=== PATIENT | female | born 1970 | race Caucasian/White ===

== ENCOUNTER 2016-08-03 05:02 | Inpatient (IN) | payer OTHER ==
[2016-07-04 08:10] VITALS: BMI 35.0
--- NOTE | 2016-07-04 08:34 | PAT Medication Instructions ---
Service Date Jul 04, 2016. Current Home Medication List Biotin (Biotin), Unknown Dose QAM Etonogestrel/Ethinyl Estradiol (Nuvaring), 1 EA VAGRING MONTHLY Multiple Vitamin (Multi-Day Vitamins), 1 TAB PO DAILY Naproxen (Aleve), 2 TAB PO QD PRN for Pain Medication Instructions For Your Scheduled Surgery Etonogestrel/Ethinyl Estradiol (Nuvaring), 1 EA VAGRING MONTHLY (continue as directed) - Check with surgeon for instructions: Naproxen (Aleve), 2 TAB PO QD PRN for Pain - Hold the following medications the morning of surgery: Multiple Vitamin (Multi-Day Vitamins), 1 TAB PO DAILY Biotin (Biotin), Unknown Dose QAM If you have any questions please call us at [phone] (Irlanda Fraser PA-C ) or [phone] or [phone]
[2016-07-04 08:56] LABS: BASO % 0.3 %; BASO ABS # 0.02 K/uL (0-0.2); COMPLETE YES; HEMATOCRIT 39.8 % (37-47); IG% 0.2 %; LYMPH % 38.5 %; LYMPH ABS # 2.27 K/uL (1.2-3.4); MEAN CELL VOLUME 84.5 fL (80-100); MEAN CORPUSCULAR HEMOGLOBIN 29.3 pg (25-34); MEAN CORPUSCULAR HGB CONC 34.7 g/dl (32-36); MEAN PLATELET VOLUME 8.8 fL (7.4-10.4); MONO % 6.8 %; NEUT % 52.2 %; PLATELET COUNT 248 K/uL (130-400); RED BLOOD COUNT 4.71 M/uL (4.2-5.4); WHITE BLOOD COUNT 5.89 K/uL (4.8-10.8)
--- NOTE | 2016-07-04 08:58 | DIAGNOSTIC IMAGING REPORT ---
CHEST PREADMISSION(PA/LAT) CLINICAL HISTORY: Preoperative chest COMPARISON STUDY: 02/17/2011 FINDINGS: The cardiac and mediastinal contours are normal. There is no evidence of focal pulmonary consolidation. There is no evidence of failure. No pleural effusions are visualized.[ IMPRESSION: No active disease in the chest. Electronically signed by: Olman Craig M.D. 07/04/2016 8:56 AM Dictated Date/Time: 07/04/2016 8:56 AM
[2016-07-04 09:07] LABS: INR 0.9 (0.9-1.1); PROTHROMBIN TIME (PATIENT) 9.5 SECONDS (9.0-12.0)
[2016-07-04 09:15] LABS: BUN/CREATININE RATIO 18.7 (10-20); CALCIUM 9.2 mg/dl (8.5-10.1); CREATININE 0.78 mg/dl (0.60-1.20); POTASSIUM 3.9 mmol/L (3.5-5.1)
--- NOTE | 2016-07-29 01:08 | HISTORY & PHYSICAL EXAMINATION ---
DATE OF ADMISSION: 08/03/2016 CHIEF COMPLAINT: Right hip and groin pain. HISTORY OF PRESENT ILLNESS: A 46-year-old white female, who works for [employer] who presents for treatment of the right hip. She has about 2-3 years of increasing right hip pain and discomfort. She describes it has gotten worse over time. She takes some Aleve, but it really does not help much anymore. She has more and more trouble getting around. She has got worn out by the pain. She has got limited walking tolerance. She limps more as the day goes on. She would like to have her hip replaced. PAST MEDICAL HISTORY: Noncontributory. PREVIOUS SURGERIES: None. ALLERGIES: No known drug allergies. CURRENT MEDICATIONS: 1. NuvaRing. 2. Aleve. SOCIAL HISTORY: A 46-year-old female, lives in [place]. She is single. Works for [employer]. FAMILY HISTORY: Significant for diabetes. REVIEW OF SYSTEMS: Negative for diabetes, neurologic problems, vascular problems or bleeding disorders. Denies any chest pain or shortness of breath. She is obese with a BMI of 35.6. PHYSICAL EXAMINATION: GENERAL: Reveals a healthy, pleasant middle-aged female, who looks in pretty good health. HEENT: Benign. NECK: Supple. No lymphadenopathy. LUNGS: Clear to auscultation. HEART: Regular rate and rhythm. ABDOMEN: Soft, nontender and nondistended. EXTREMITIES: Grossly neurovascularly intact except as follows: Examination of right hip and leg reveals the patient walks with an antalgic gait. Leg lengths clinically appear pretty equal. She does have limited hip motion with pain with internal rotation. She can internally rotate to neutral, external rotation of 20 degrees. Slight flexion contracture. Neurologically intact. Negative straight leg raise. X-RAYS: X-rays of the right hip were reviewed. It shows advanced right hip DJD. She has complete loss of superior joint space. She has cystic changes in the femoral head and acetabulum. Fairly poor acetabular coverage. Pretty significant with medial osteophyte. ASSESSMENT: A 46-year-old female with 2-3 years history of increasing right hip pain and discomfort, unresponsive to conservative care. She would like to have her right hip replaced. PLAN: We are going to take her to the operating room and do a right total hip replacement. The risks and benefits of this procedure were explained to the patient including but not limited to DVT, PE, , infection, neurological injury, vascular injury, bleeding problems, pain, limited range of motion, stiffness, need for revision surgery, dislocation, leg length inequality, nerve palsy, etc. The patient understands and desires to proceed. Informed consent was obtained. The patient is single. Her parents are going to help her out postoperatively. She is planning to be discharged to home with some home health. She has held her Aleve 10 days preop. I will see her back 2 weeks postop. CARISSA
[~2016-08-03] VITALS: Ht 165.1 cm; Wt 97.0 kg
[2016-08-03] VITALS (10 sets, daily range): BP systolic 91–147; BP diastolic 61–98; PULSE 64–97; TEMP 36.5–37.6; O2SAT 95–100; Ht 165.1 cm; Wt 97.0 kg
[~2016-08-03 05:02] MED LIST: BIOT300T2; ETONMIS VAGRING; MULT-225 PO; NAPR1TAB9 PO
[2016-08-03] MEDS ORDERED: LACTATED RINGER'S 1000ML 1,000 ML IV SCH (06:00)
[2016-08-03] MEDS ORDERED: FAMOTIDINE 20 MG TAB PO SCH (06:00)
[2016-08-03] MEDS ORDERED: LACTATED RINGER'S 1000ML IV SCH (06:00)
[2016-08-03] MEDS ORDERED: SCOPOLAMINE 1.5 MG TDSY TD SCH (06:00)
[2016-08-03] MEDS ORDERED: METOCLOPRAMIDE HCL 10 MG TAB PO SCH (06:00)
[2016-08-03] MEDS ORDERED: TRANEXAMIC ACID INJ 1,000 MG in SODIUM CHLORIDE 0.9% 100ML 100 ML IV SCH ×4 (06:00)
[2016-08-03] MEDS ORDERED: ACETAMINOPHEN 500 MG TAB PO SCH (06:00)
[2016-08-03] MEDS ORDERED: GABAPENTIN 300 MG CAP PO SCH (06:00)
[2016-08-03] MEDS ORDERED: CEFAZOLIN 2000 MG/60 ML D5W 60 ML IV SCH (06:00)
[2016-08-03] MEDS ORDERED: BUPIVACAINE 0.5 % 5 MG/1 ML PF 10ML VIAL ONE (06:25)
[2016-08-03] MEDS ORDERED: MIDAZOLAM HCL 1 MG/ML 2ML VIAL ONE ×3 (06:33→08:19)
[2016-08-03] MEDS ORDERED: FENTANYL CITRATE INJ 50 MCG/1 ML 2 ML VIAL ONE (06:33)
[2016-08-03] MEDS ORDERED: PROPOFOL IV EMULSION 10 MG/ML 20 ML VIAL IV ONE (06:33)
[2016-08-03] MEDS ORDERED: LIDOCAINE HCL 2% 2 ML VIAL (20MG/ML) ONE (06:33)
[2016-08-03] MEDS ORDERED: BUPIVACAINE/EPINEPHRINE 0.5% MPF 1:200,000 30 ML VIAL ONE (06:36)
[2016-08-03] MEDS ORDERED: BACITRACIN 50000 UNIT VIAL ONE (06:36)
--- NOTE | 2016-08-03 06:47 | History & Physical Bridge Note ---
H&P Re-Evaluation Bridge Note: I have examined the patient, reviewed the History & Physical and in the interval since the performance of the History & Physical I have noted the following changes of clinical significance: No changes noted
[2016-08-03] MEDS ORDERED: RANITIDINE HCL 25 MG/ML INJ ONE ×2 (07:17→07:24)
[2016-08-03] MEDS ORDERED: ONDANSETRON INJ 2 MG/ML 2 ML VIAL ONE (07:17)
[2016-08-03] MEDS ORDERED: PHENYLEPHRINE 100MCG/ML 5ML SYR ONE (07:27)
--- NOTE | 2016-08-03 08:53 | [facility] Post Operative Brief Note ---
Immediate Operative Summary Operative Date Aug 03, 2016. Pre-Operative Diagnosis Right Hip Advanced Degenerative Joint Disease Post-Operative Diagnosis Same as pre-operative Procedure(s) Performed Right Total Hip Arthroplasty--Uncemented Surgeon Dr. Jorge Hines [employer] Surgeon(s) Josué Silverio PA-C Estimated Blood Loss 500ml Findings Right Hip DJD Fluids (cc crystalloids) 1700 cc Specimens SPECIMEN: A: Right femoral head Drains None Anesthesia Spinal Complication(s) None Disposition Recovery Room / PACU
[2016-08-03] MEDS ORDERED: SILVER SULFADIAZINE 1% CR 50 GM JAR EXT PRN (09:00)
[2016-08-03] MEDS ORDERED: OXYCODONE HCL IR 5 MG TAB (IMMEDIATE RELEASE) PO PRN (09:00)
[2016-08-03] MEDS ORDERED: MULTIVITAMIN TAB PO SCH (09:00)
[2016-08-03] MEDS ORDERED: MAGNESIUM HYDROXIDE SUSP 30 ML UDC PO PRN (09:00)
[2016-08-03] MEDS ORDERED: ZOLPIDEM TARTRATE 5 MG TAB PO PRN (09:00)
[2016-08-03] MEDS ORDERED: DiphenhydrAMINE HCL 50 MG/ML VIAL IV PRN (09:00)
[2016-08-03] MEDS ORDERED: ALUMINUM/MAGNESIUM/SIMETH (MAALOX MAX) 30 ML UDC PO PRN (09:00)
[2016-08-03] MEDS ORDERED: BISACODYL 10 MG SUPP PR PRN (09:00)
[2016-08-03] MEDS ORDERED: MoRPHine SULFATE 2 MG/ML CARP IV PRN (09:00)
[2016-08-03] MEDS ORDERED: ONDANSETRON INJ 2 MG/ML 2 ML VIAL IV PRN ×2 (09:00→10:00)
[2016-08-03] MEDS ORDERED: METOCLOPRAMIDE HCL INJ 5 MG/ML 2 ML VIAL IV PRN (09:00)
--- NOTE | 2016-08-03 09:21 | OPERATIVE REPORT ---
DATE OF OPERATION: 08/03/2016 SURGEON: Dr. Jorge Hines. DRY CHAIN OFFBEARER: LEV Zazueta PREOPERATIVE DIAGNOSIS: Right hip degenerative joint disease. POSTOPERATIVE DIAGNOSIS: Same. PROCEDURE PERFORMED: Right uncemented ceramic on highly cross-linked polyethylene total hip arthroplasty. COMPLICATIONS: None. ESTIMATED BLOOD LOSS: 500 mL. FLUID REPLACEMENT: 1700 mL crystalloid fluid replacement. ANESTHESIA: Spinal. DRAINS: None. SPECIMENS: Right femoral head sent for pathology. OPERATIVE INDICATIONS: The patient is a 46-year-old fairly active female who has had about a 2- 3-year history of markedly increased right hip pain that has gotten significantly worse over the past year. She has been pretty debilitated by this and having difficulty doing her job. X-rays revealed advanced right hip DJD. She elected to proceed with total hip arthroplasty. OPERATIVE FINDINGS: Operative findings revealed advanced right hip DJD. She had grade 4 [id number] disease of the femoral head and acetabulum. She did have quite a bit of bleeding from the intramedullary canal. She had osteophytes around the femoral head. OPERATIVE IMPLANTS: Operative implants consisted of: 1. A Biomet G7 size 52 mm acetabular shell. 2. A 6.5 cancellous acetabular screws, 1 at 35 mm length and 1 at 20 mm in length. 3. An apex hole eliminator. 4. Highly cross-linked polyethylene liner with 52 mm outer diameter, 32 mm inner diameter with a flor placed inferior and posterior. 5. A DePuy size 10.5 small stature AML femoral stem. 6. A +5/32 mm ceramic articular ball. OPERATIVE PROCEDURE: The patient taken to the operating room, identified and placed on the operating table in supine position. All contact areas were appropriately padded. IV antibiotics were provided by anesthesia team. A spinal anesthetic had been implemented in the holding area. Raymond catheter was placed in sterile fashion. The patient was then placed in the left lateral decubitus position. An axillary roll was placed. Stlberg hip positioner was used for positioning. Right hip and leg were then prepped and draped in the usual sterile fashion. A posterolateral approach to the right hip was then performed through a curvilinear incision centered over the greater trochanter. Sharp dissection was carried out through the subcutaneous tissue down to the level of the IT band and gluteal fascia. The IT band and gluteal fascia were then incised longitudinally in line with skin incision. Of note, she had a fairly thick soft tissue envelope. The greater trochanteric bursa was excised. The piriformis and external rotators were then tagged and taken off the posterior aspect of the femur. Posterior capsulotomy was then performed leaving a large flap for later repair. Hip was internally rotated and dislocated. Femoral neck osteotomy cut was made with the final cut 15 mm above the lesser trochanter. Femoral head was removed and sent for pathology. The femur was retracted anteriorly. Attention was then drawn to the acetabulum. The acetabulum labrum was excised. The pulvinar fat was excised. Sequential reaming of the acetabulum was then performed beginning with a size 45 and progressing up to 51. A 52 mm Biomet G7 acetabular shell was then placed in about 40 degrees of lateral opening and 20 degrees of anteversion. I did have to ream the entrance to the acetabulum with a 52 in order to get the cup in. The cup was fixed with two 6.5 cancellous acetabular screws. A trial liner was placed. Attention was then drawn to the femur. The proximal femur was entered with cookie cutter followed by canal finder and lateralizing reamer. Sequential reaming of the femur was then performed beginning with a size 8 and progressing up to 10. We got excellent chatter at a 10. I then broached beginning with a 10.5 broach. We had to place it down several times. We eventually got just about the calcar cut. We then trialed the hip and the +5/32 mm articular ball provided full stability and full extension and external rotation and flexion to 90 degrees, internal rotation to 50 degrees. I did elect to place a flor inferior and posterior to maximize the stability in flexion. Attention then drawn toward placement of permanent components. All trial components were removed. The wound was irrigated with copious amounts of pulsatile lavage solution. An apex hole eliminator was placed. A highly cross-linked polyethylene liner with a flor placed inferior and posterior was then placed. A 10.5 small stature AML femoral stem was impacted in position. Excellent scratch fit. A +5/32 mm ceramic articular ball was placed. The hip was located and once again found to be stable. Attention was then drawn toward closing. The wound was irrigated with copious amounts of pulsatile lavage solution. I did inject locally with 60 mL of 0.5% Marcaine with epinephrine. The posterior capsule and external rotators were reattached through drill holes in the posterior trochanter with #2 Ti-Cron suture. The IT band and gluteal fascia were then closed with #1 PDS suture in running fashion. The subcutaneous tissues were then closed with 2 layers, the deep layer #2 Vicryl suture and then the subcutaneous tissues with 2-0 Dexon suture in a buried interrupted fashion. The skin was closed with skin gerald. Leg was then cleaned and dried and a sterile dressing of Xeroform, 4 x 4's, ABD pad and foam tape was applied. The patient then transferred to the recovery room in stable condition. The patient tolerated the procedure well with no complications. All needle and sponge counts were correct at the end of the operation. I attest to the content of the Intraoperative Record and any orders documented therein. Any exceptio ns are noted below.
--- NOTE | 2016-08-03 09:27 | DIAGNOSTIC IMAGING REPORT ---
AP PELVIS AND RIGHT HIP 3 VIEWS CLINICAL HISTORY: Degenerative arthritis COMPARISON STUDY: No previous studies for comparison. FINDINGS: There are postsurgical changes of a total right hip arthroplasty. No acute fractures or dislocations are visualized. Overlying skin gerald are evident. There is air in soft tissues consistent with recent surgery. IMPRESSION: Postsurgical changes of a total right hip arthroplasty Electronically signed by: Olman Craig M.D. 08/03/2016 9:25 AM Dictated Date/Time: 08/03/2016 9:24 AM
--- NOTE | 2016-08-03 09:48 | Anesthesiology Progress Note ---
Anesthesia Post Op Note Date & Time Aug 03, 2016 at 09:48 Vital Signs Pain Intensity: 0 Vital Signs Past 12 Hours Date Time Temp Pulse Resp B/P Pulse Ox O2 Delivery O2 Flow Rate FiO2 08/03/16 09:34 36.3 66 16 87/63 100 Nasal Cannula 2 08/03/16 09:27 68 14 08/03/16 09:27 69 14 100 08/03/16 09:26 85/54 08/03/16 09:22 66 16 08/03/16 09:22 65 16 100 08/03/16 09:21 84/64 08/03/16 09:17 81 18 08/03/16 09:17 88 18 100 08/03/16 09:16 90/54 08/03/16 09:15 98/53 08/03/16 09:12 83 16 08/03/16 09:12 86 16 100 08/03/16 09:10 98/53 08/03/16 09:09 89/59 08/03/16 09:07 70 17 100 08/03/16 09:07 69 17 08/03/16 09:06 85/50 08/03/16 09:06 85/50 08/03/16 09:03 86 16 97 08/03/16 09:03 86 16 08/03/16 09:03 86 16 97 08/03/16 09:03 86 16 08/03/16 09:00 97/56 08/03/16 09:00 97/56 08/03/16 08:58 90 17 08/03/16 08:58 89 17 99 08/03/16 08:58 90 17 08/03/16 08:58 89 17 99 08/03/16 08:57 113/97 08/03/16 08:57 113/97 08/03/16 08:53 89 19 08/03/16 08:53 88 19 101/66 99 08/03/16 08:53 88 19 101/66 99 08/03/16 08:53 89 19 08/03/16 08:53 36.2 82 16 101/66 99 Room Air 08/03/16 05:43 36.6 82 18 105/65 96 Room Air Notes Mental Status: alert / awake / arousable, participated in evaluation Pt Amnestic to Procedure: Yes Nausea / Vomiting: adequately controlled Pain: adequately controlled Airway Patency, RR, SpO2: stable & adequate BP & HR: stable & adequate Hydration State: stable & adequate Anesthetic Complications: no major complications apparent
[2016-08-03] MEDS ORDERED: PHENYLEPHRINE 100MCG/ML 5ML SYR IV PRN (10:00)
[2016-08-03] MEDS ORDERED: ATROPINE SULFATE 0.1 MG/ML 5ML SYR IV PRN (10:00)
[2016-08-03] MEDS ORDERED: HYDROmorphone INJ 2 MG/ML SYR/VIAL IV PRN (10:00)
[2016-08-03] MEDS ORDERED: EpHEDrine SULFATE INJ 50 MG/ML AMP IV PRN (10:00)
[2016-08-03] MEDS: KETOROLAC TROMETHAMINE 30 MG/ML VIAL IV. SCH ×2 (11:55→18:06)
[2016-08-03] MEDS: D5W AND 1/2NSS + 20MEQ KCL 1,000 ML IV SCH ×2 (11:56→19:16)
[2016-08-03] MEDS: PANTOprazole SOD 40 MG TAB PO SCH (12:02)
[2016-08-03] MEDS: MULTIVITAMIN TAB PO SCH (12:02)
[2016-08-03] MEDS: FERROUS GLUCONATE 324 MG TAB PO SCH ×2 (12:23→18:05)
[2016-08-03] MEDS: ACETAMINOPHEN 500 MG TAB PO SCH ×2 (13:51→21:55)
[2016-08-03] MEDS: CEFAZOLIN IV 2,000 MG in DEXTROSE 5% 50ML 50 ML IV SCH ×2 (13:51→22:01)
[2016-08-03] MEDS ORDERED: TRANEXAMIC ACID INJ 1,000 MG in SODIUM CHLORIDE 0.9% 100ML 100 ML IV ONE (15:00)
[2016-08-03] MEDS: CHECK SCOPOLAMINE PATCH PLACEMENT SCH (16:00)
--- NOTE | 2016-08-03 17:48 | PROGRESS NOTE ---
DATE: 08/03/2016 SUBJECTIVE: A 46-year-old white female postop from a right total hip replacement. She is doing well. Pain is controlled. Denies any chest pain. Not feeling dizzy or lightheaded. OBJECTIVE: VITAL SIGNS: Temperature 37.2. Vital signs stable. GENERAL: Reveals a healthy, pleasant middle-aged female. She is sitting up in bed and looks comfortable. LUNGS: Clear to auscultation. HEART: Has a regular rate and rhythm. ABDOMEN: Soft, nontender, nondistended. EXTREMITIES: Grossly neurovascularly intact except as follows: Examination of the right hip and leg reveals the leg lengths to be equal. Dressing is clean, dry and intact. Thigh is soft and supple. She is neurologically intact. Hip is located. X-RAYS: X-rays of the right hip from recovery room were reviewed. It shows a right uncemented total hip arthroplasty. Components looked to be in good position. No signs of problems. ASSESSMENT: A 46-year-old white female postop from a right total hip replacement, doing well. Pain is controlled. She is neurologically intact. Hip is located. PLAN: 1. DVT prophylaxis including thigh-high TEDs, SCDs, and aspirin twice a day. 2. PT/OT. Weightbearing as tolerated. Right total hip protocol. 3. IV antibiotics x24 hours. 4. Pain control, doing well with current pain regimen. 5. Disposition: She is planning to be discharged to her parent's home with likely some home health assistance, once medically stable. CARISSA
[2016-08-03] MEDS: ASPIRIN 325 MG ECTAB PO SCH (21:55)
[2016-08-03] MEDS: DOCUSATE SODIUM 100 MG CAP PO SCH (21:55)
[2016-08-03] MEDS: TAPENTADOL ER 50 MG TABCR PO SCH (22:00)
[2016-08-04] VITALS (7 sets, daily range): BP systolic 98–113; BP diastolic 63–71; PULSE 78–98; TEMP 36.8–37.3; O2SAT 95–97
[2016-08-04] MEDS: KETOROLAC TROMETHAMINE 30 MG/ML VIAL IV. SCH ×4 (00:05→18:09)
[2016-08-04] MEDS: CHECK SCOPOLAMINE PATCH PLACEMENT SCH ×3 (00:06→15:23)
[2016-08-04] MEDS: D5W AND 1/2NSS + 20MEQ KCL 1,000 ML IV SCH ×2 (03:03→10:15)
[2016-08-04] MEDS: ACETAMINOPHEN 500 MG TAB PO SCH ×3 (05:44→21:40)
[2016-08-04 05:59] LABS: BASO % 0.1 %; BASO ABS # 0.01 K/uL (0-0.2); COMPLETE YES; EOS % 0.5 %; HEMATOCRIT 28.5 % (37-47); IG% 0.2 %; LYMPH % 23.8 %; LYMPH ABS # 2.51 K/uL (1.2-3.4); MEAN CELL VOLUME 85.1 fL (80-100); MEAN CORPUSCULAR HEMOGLOBIN 29.3 pg (25-34); MEAN CORPUSCULAR HGB CONC 34.4 g/dl (32-36); MEAN PLATELET VOLUME 8.8 fL (7.4-10.4); MONO % 9.2 %; NEUT % 66.2 %; PLATELET COUNT 193 K/uL (130-400); RED BLOOD COUNT 3.35 M/uL (4.2-5.4); WHITE BLOOD COUNT 10.55 K/uL (4.8-10.8)
[2016-08-04 06:40] LABS: BUN/CREATININE RATIO 12.1 (10-20); CALCIUM 7.9 mg/dl (8.5-10.1); CREATININE 0.67 mg/dl (0.60-1.20)
--- NOTE | 2016-08-04 08:57 | PROGRESS NOTE ---
DATE: 08/04/2016 DATE: 08/04/2016. SUBJECTIVE: A 46-year-old white female postop day 1 from right total hip replacement. She is doing pretty well. Pain is very well controlled. Denies any chest pain or shortness of breath. Not feeling dizzy or lightheaded. OBJECTIVE: VITAL SIGNS: Temperature 36.8. Vital signs stable. PHYSICAL EXAMINATION: GENERAL: Reveals a healthy, pleasant middle-aged female. She is sitting up in her bedside chair and looking pretty comfortable. She is eating breakfast. LUNGS: Clear to auscultation. HEART: Regular rate and rhythm. ABDOMEN: Soft, nontender, nondistended. EXTREMITY EXAMINATION: Grossly neurovascularly intact except as follows: Examination of the right lower extremity reveals the dressing to be clean, dry and intact. Thigh is soft and supple. Hip is located. She is neurologically intact. LABORATORY DATA: Hemoglobin 9.8. Hematocrit 28.5. Electrolytes are stable. ASSESSMENT: A 46-year-old white female postop day 1 from right total hip replacement, doing pretty well. Pain is controlled. PLAN: 1. DVT prophylaxis including thigh-high TEDs, SCDs, and aspirin twice a day. 2. PT/OT. Weightbearing as tolerated. Right total hip protocol. 3. Pain control. Doing pretty well with current pain regimen. 4. Anemia. She is anemic, but asymptomatic. Otherwise healthy and she should tolerate this well. We will continue iron supplementation. 5. Disposition: Plan to discharge to home with some home health once adequately recovered. She is going to go to her parents' house immediately postop.
[2016-08-04] MEDS: ASPIRIN 325 MG ECTAB PO SCH ×2 (09:07→21:37)
[2016-08-04] MEDS: TAPENTADOL ER 50 MG TABCR PO SCH ×2 (09:07→21:37)
[2016-08-04] MEDS: FERROUS GLUCONATE 324 MG TAB PO SCH ×3 (09:07→18:06)
[2016-08-04] MEDS: MULTIVITAMIN TAB PO SCH ×2 (09:07→12:09)
[2016-08-04] MEDS: DOCUSATE SODIUM 100 MG CAP PO SCH ×2 (09:07→21:37)
[2016-08-04] MEDS: PANTOprazole SOD 40 MG TAB PO SCH (09:08)
[2016-08-04] MEDS ORDERED: ASPEC325 PO (19:55)
[2016-08-04] MEDS ORDERED: OXYC-57 PO (19:55)
--- NOTE | 2016-08-04 19:58 | Discharge Instructions ---
Discharge Instructions Date of Service Aug 04, 2016. Admission Reason for Admission: Right Hip Degenerative Joint Disease Discharge Discharge Diagnosis / Problem: Right Hip Replacement Discharge Goals Goal(s): Decrease discomfort, Improve function, Increase independence, Improve disease control, Therapeutic intervention Activity Recommendations Activity Limitations: per Instructions/Follow-up section (Total Hip Precautions ) Weightbearing Status: Right weightbearing . Instructions / Follow-Up Instructions / Follow-Up ACTIVITY RECOMMENDATIONS: Physical Therapy: * Aggressive physical therapy is not usually needed. You will learn to take care of yourself safely and walk. * Follow the "Hip Precautions Instructions." * In some cases, the home health care social worker at the hospital will arrange to have a therapist come to your house for the first couple of weeks to help you learn these skills. * You need to practice on your own or with the help of a family member as needed. * When you learn these skills, most of the therapy can be done on your own. Home Exercise: * You were shown a series of exercises in the hospital. Do these exercises three to four times each day including the exercises you were shown in physical therapy. Walking: * Get up and walk several times each day. For the first four weeks, try not to stand or walk for more than one hour at a time. If you do stand or walk for more than one hour, you will not hurt anything, but your leg will likely swell. * As you feel comfortable, you may change from the walker or crutches to a cane and then to independent walking. MEDICATIONS: New Medicine: * You will likely be taking one or more of these medicines: 1. Percocet - Take, as directed, when you need it, every four to six hours to control your pain. 2. Aspirin - Thins your blood to lessen the chance of forming a blood clot. * The most common side effects of pain medicine and iron are nausea and constipation. If nausea or constipation is too much of a problem or if you have any questions about your new medicines or doses, call [facility] at . We will try to help you manage these issues. VERY IMPORTANT TO READ AND REVIEW" Pain: * The immediate post-operative period after hip replacement surgery is often quite painful. * You are given a prescription for pain medicine. You should take it, as directed, when you need it, especially before physical therapy and before going to bed. Pain that interferes with sleep is very common and can last several months. * You will likely need pain medicine for the first two to four weeks. It will not stop all of the pain. The pain will lessen and as you feel better, you may change to milder pain medicine such as Tylenol. * The most common side effects of pain medicine are nausea and constipation, so don't take more than you need. SPECIAL CARE INSTRUCTIONS: TEDs/Elastic Stockings: * The white elastic stockings help limit swelling and prevent blood clots from forming in your legs. The more you wear them, the more they work. * Wear them for six weeks. Prevention of Infection: * Take antibiotics one hour before any dental cleaning, dental work, urological procedure, gastrointestinal procedure or any invasive surgery in order to prevent your new joint from getting infected. * You may get the antibiotics from the doctor performing the procedure or you may call our office at before and we will call in a prescription to the pharmacy of your choice. Things to Watch For: * Drainage from the incision site that occurs more than one week after your surgery. * Severely increased leg pain or swelling. * Increased redness at the incision site. * Fever above 102 degrees Fahrenheit. * Unusual chest pain or shortness of breath. * Unusual pain or burning with urination. Call [facility] at with any of the above problems or if you have any questions about your medicines or recovery. FOLLOW UP VISIT: Make an appointment to see your doctor for approximately two weeks after surgery for a progress check and staple removal by calling the office at . Current Hospital Diet Patient's current hospital diet: Regular Diet Discharge Diet Recommended Diet: Regular Diet Procedures Procedures Performed: Right Total Hip Arthroplasty--Uncemented Pending Studies Studies pending at discharge: no Medical Emergencies . Who to Call and When: Medical Emergencies: If at any time you feel your situation is an emergency, please call [phone] immediately. . Non-Emergent Contact Non-Emergency issues call your: Surgeon . "Provider Documentation" section prepared by Jorge Hines. VTE Core Measure Inpt VTE Proph given/why not?: Other Anticoagulation, T.E.D. Stockings, SCD's
[2016-08-05] MEDS: CHECK SCOPOLAMINE PATCH PLACEMENT SCH (00:18)
[2016-08-05] MEDS: KETOROLAC TROMETHAMINE 30 MG/ML VIAL IV. SCH ×2 (00:18→06:26)
[2016-08-05 06:01] VITALS: BP 113/73; PULSE 97; TEMP 37.1; O2SAT 95
[2016-08-05] MEDS: ACETAMINOPHEN 500 MG TAB PO SCH (06:27)
[2016-08-05 07:13] VITALS: BP 101/66; PULSE 101; O2SAT 94
[2016-08-05 08:02] VITALS: PULSE 101; TEMP 37.1; O2SAT 94
[2016-08-05] MEDS: MULTIVITAMIN TAB PO SCH (08:17)
[2016-08-05] MEDS: ASPIRIN 325 MG ECTAB PO SCH (08:18)
[2016-08-05] MEDS: DOCUSATE SODIUM 100 MG CAP PO SCH (08:18)
[2016-08-05] MEDS: PANTOprazole SOD 40 MG TAB PO SCH (08:18)
[2016-08-05] MEDS: FERROUS GLUCONATE 324 MG TAB PO SCH (08:18)
[2016-08-05] MEDS: TAPENTADOL ER 50 MG TABCR PO SCH (08:21)
[2016-08-05 09:02] VITALS: BP 105/67
--- NOTE | 2016-08-05 10:11 | PROGRESS NOTE ---
DATE: 08/05/2016 SUBJECTIVE: A 46-year-old female postop day #2 from right total hip replacement. She is doing well. Therapy went pretty well. Denies any chest pain or shortness of breath. Not feeling dizzy or lightheaded. OBJECTIVE: VITAL SIGNS: Temperature 37.1. Vital signs stable. GENERAL: Physical examination reveals a healthy, pleasant middle-aged female. She is sitting up in bed and looks comfortable. LUNGS: Clear to auscultation. HEART: Regular rate and rhythm. ABDOMEN: Soft, nontender, and nondistended. EXTREMITIES: Grossly neurovascularly intact except as follows: Examination of the right hip and the right leg reveals the dressing to be clean, dry and intact. Hip is located. She is neurologically intact. ASSESSMENT: A 46-year-old female postop day #2 from right total hip replacement, doing pretty well. Pain is controlled. PLAN: 1. DVT prophylaxis including thigh-high TEDs, SCDs, and aspirin twice a day. 2. PT/OT. Weightbearing as tolerated. Right total hip protocol. 3. Pain control, doing pretty well with current pain regimen. 4. Disposition: Plan to discharge to home with some home health once adequately recovered, likely later on today.
--- NOTE | 2016-08-10 09:08 | DISCHARGE SUMMARY ---
ADMITTING PHYSICIAN AND SURGEON: Dr. Hines. ADMITTING DIAGNOSIS: Right hip degenerative joint disease. SURGERY PERFORMED: Right total hip arthroplasty. SECONDARY DIAGNOSES: Noncontributory. CONSULTS: None obtained. HISTORY AND PHYSICAL EXAMINATION: Well documented in the patient's chart. HOSPITAL COURSE: The patient was admitted on 08/03/2016 and underwent total hip arthroplasty, tolerated the procedure well. There were no complications. She was transferred to the PACU postoperatively and later to the orthopedic floor for further care. She was given Ancef for antibiotic prophylaxis, SYLVESTER stockings, SCDs and aspirin for DVT prophylaxis. Her hemoglobin, hematocrit and vital signs were monitored during her hospital stay and remained stable. She developed some postoperative anemia with a hemoglobin down to 9.8. Did not require any blood transfusions. There were no complications. By postoperative day 2, she was tolerating a general diet, pain was controlled with oral pain medicine. She was participating in physical therapy and had no signs or symptoms of deep vein thrombosis. On postop day 2, she was discharged home in good condition, set up with home health services, given printed discharge instructions including aspirin 325 mg b.i.d. and Percocet. Continue her home medications, continue physical therapy, SYLVESTER stockings, weightbearing as tolerated, total hip precautions. Follow up in 10-12 days or sooner if there are any problems or concerns.
[2016-08-27] MEDS ORDERED: ETONOGESTREL VAGRING SCH (21:00)
[2016-08-27] MEDS ORDERED: ETHINYL ESTRADIOL VAGRING SCH (21:00)
== END 2016-08-05 10:05 | disposition home or self-care (01) | DRG 470 ==
LOC: ENRESERVDT → ENRESERVTM → C.ACU 05:02 → C.3E 10:22
PROVIDERS: ADMIT Orthopaedic Surgery Sports Medicine; ATTEND Orthopaedic Surgery Sports Medicine
PROC: 0SR904A Replacement of Right Hip Joint with Ceramic on Polyethylene Synthetic Substitute, Uncemented, Open Approach (ICD-10-PCS; principal; 2016-08-03 07:00)
DX: M16.11 Unilateral primary osteoarthritis, right hip (principal)

== ENCOUNTER 2018-12-11 05:59 | Inpatient (IN) ==
--- NOTE | 2018-12-01 08:53 | Anesthesiology Consultation ---
Date of Service December 01, 2018 Assessment & Plan (1) Encounter for pre-operative examination: - Check test AM DOS Chart Review Chart Review: Acceptable Risk for Surgery and Patient NOT seen in Pre Admission Testing History Surgery Operation Date: 12/11/18 07:00 Proposed Procedures p Laparoscopic Assisted Right Hemicolectomy - Seven Tierney DO Height/Weight Height: 5 ft 5 in Weight: 86.183 kg Allergies Allergy/AdvReac Type Severity Reaction Status Date / Time No Known Allergies Allergy Unknown Verified 11/28/18 15:31 Medications Home Medications Medication Instructions Recorded Confirmed Last Taken NuvaRing 1 vag ring VAGINAL UD 11/05/18 11/28/18 Unknown biotin 2,000 mcg PO QAM 11/05/18 11/28/18 11/17/18 multivitamin 2 tab PO QAM 11/05/18 11/28/18 11/17/18 Past Medical History Medical History Degenerative disc disease lumbar Obesity Past Surgical History Surgical History History of colonoscopy 11/19/18: MAC sedation at [facility] History of total right hip replacement History of wisdom tooth extraction Social History Smoking Status: Never smoker Do You Dip or Chew Tobacco: No Hx Alcohol Use: Yes Alcohol type: wine alcohol intake frequency: holidays/special occasions only Hx Substance Use: No substance use type: does not use Testing Laboratory Results 11/25/18 WBC 7.64 H/H 14.6/41.7 PLATELETS 271 SODIUM 137 POTASSIUM 3.5 CHLORIDE 104 CO2 25 BUN 10 CREATININE 0.78 GLUCOSE 73 PT 9.7 INR 0.9 Electrocardiogram Date: 11/25/18 NSR at 70bpm. LAD. Other Testing Chest CT: 11/25/18: The lungs are clear. No significant abnormality identified within the chest.
[2018-12-11] MEDS ORDERED: LR 15ML/HR IV SCH (06:00)
[2018-12-11] MEDS ORDERED: CEFAZOLIN 2000MG 2,000 MG/15 ML SYR IV SCH (06:00)
[2018-12-11] MEDS ORDERED: ATROPINE SULFATE 0.1 MG/ML 10ML SYR IV PRN (07:16)
[2018-12-11] MEDS ORDERED: ONDANSETRON INJ 2 MG/ML 2 ML VIAL IV PRN ×2 (07:16→11:01)
[2018-12-11] MEDS ORDERED: LABETALOL HCL IV 5 MG/ML 20ML IV PRN (07:16)
[2018-12-11] MEDS ORDERED: MEPERIDINE HCL 25 MG/ML CARP IV PRN (07:16)
[2018-12-11] MEDS ORDERED: PHENYLEPHRINE 100MCG/ML 5ML SYR IV PRN (07:16)
[2018-12-11] MEDS ORDERED: ePHEDrine sulfate 50 MG/ML AMP IV PRN (07:16)
--- NOTE | 2018-12-11 07:29 | History & Physical Bridge Note ---
Date of Service December 11, 2018 History & Physical Bridge Note I have examined the patient, reviewed the History & Physical and in the interval since the performance of the History & Physical I have noted the following changes of clinical significance: no changes noted
[2018-12-11] MEDS ORDERED: fentaNYL citrate 100 MCG/2 ML VIAL ONE ×2 (07:32)
[2018-12-11] MEDS ORDERED: MIDAZOLAM HCL 1 MG/ML 2ML VIAL ONE (07:32)
[2018-12-11] MEDS ORDERED: BUPIVACAINE/EPINEPHRINE 0.5% MPF 1:200,000 30 ML VIAL ONE (07:36)
[2018-12-11] MEDS ORDERED: ONDANSETRON INJ 2 MG/ML 2 ML VIAL ONE ×2 (08:08→09:26)
[2018-12-11] MEDS ORDERED: GLYCOPYRROLATE 0.2 MG/ML VIAL ONE ×2 (08:08→09:27)
[2018-12-11] MEDS ORDERED: LIDOCAINE HCL 2% 2 ML VIAL/AMP(20MG/ML) INFIL ONE (08:08)
[2018-12-11] MEDS ORDERED: NEOSTIGMINE METHYLSULFATE 5 MG/5 ML SYR ONE (08:08)
[2018-12-11] MEDS ORDERED: ROCURONIUM BROMIDE 10 MG/ML 5 ML VIAL ONE (08:08)
[2018-12-11] MEDS ORDERED: PROPOFOL IV EMULSION 10 MG/ML 20 ML VIAL IV ONE (08:08)
[2018-12-11] MEDS ORDERED: DEXAMETHASONE SOD INJ 4 MG/ML VIAL ONE (08:08)
[2018-12-11] MEDS ORDERED: KETOROLAC 30 MG/ML VIAL ONE (09:27)
[2018-12-11] MEDS ORDERED: ePHEDrine sulfate 50 MG/ML SYR ONE (09:27)
--- NOTE | 2018-12-11 10:00 | Operative Report ---
Post Operative Report Pre & Post Diagnosis Operation Date: 12/11/18 07:50 Pre-Op Diagnosis: Adenocarcinoma of Colon Post-Op Diagnosis: Adenocarcinoma of Colon Procedure Operation Date: 12/11/18 07:50 Actual Procedures p Laparoscopic Right Hemicolectomy - Seven Tierney DO Surgeon Seven Tierney DO Director Of Materials cammy Rai. cammy Modi Estimated Blood Loss 20 Findings Consistent with Post-Op Diagnosis Specimens terminal ileum, cecum, right colon Description of Procedure After informed consent was obtained the patient was taken to the operating room and placed in supine position. After successful intubation a Raymond catheter was placed and the abdomen was sterilely prepped and draped in usual fashion. I began with a supraumbilical incision with an 11 blade scalpel. This was carried down through the soft tissue using cautery. Anterior rectus fascia was opened using cautery and two #0 Vicryl stay sutures were placed. Blunt finger penetration was used to enter the peritoneum and a finger sweep was performed. A 12 mm Martin trocar was placed and the abdomen was insufflated to 15 mmHg. A laparoscope was inserted and the abdomen examined in 360 degrees. A suprapubic 5 mm port, a left lower quadrant 12 mm port, and eventually right upper quadrant 5 mm port were placed under direct vision. The patient was placed in a [place] position and slightly air planed to the left. There were no gross visible abnormalities. I began by rolling the cecum appendix and terminal ileum medially. Using the harmonic scalpel I was able to free up the cecum from the right lower quadrant sidewall and continue to use primarily blunt dissection with small amounts of harmonic scalpel to take down the white line of Toldt. I was able to come up around the hepatic flexure and continued to detach the colon from the liver and gallbladder and completely free up the hepatic flexure over to the mid transverse colon. Once this was completed I was able to use a MARIA TERESA brown cartridge 60 mm linear stapler to transect the terminal ileum several inches proximal to the cecum. I then used a harmonic scalpel to take down the mesentery of the terminal ileum cecum and right colon staying as low as possible to try and obtain some lymph nodes for evaluation. Once I had this freed up to the proximal transverse colon we then extended the right upper quadrant trocar site using a new scalpel and used cautery to carry this down through the fascia and muscle. Eventually we had a large enough defect to exteriorize the right colon. I then transected this proximal to the middle colic vessels using a MARIA TERESA purple cartridge 60 mm stapler. The specimen was passed off to be sent to pathology. Next we delivered the distal most ileum out through the same opening. I used a MARIA TERESA brown cartridge 60 mm stapler to create a side to side small bowel to transverse colon anastomosis. The common enterotomy was closed using a TA 60 stapling device. Once this was completed I used 3-0 silk to oversew the staple lines in Lembert fashion. The anastomosis looked widely patent with good blood flow. This was then dunked back down into the abdominal cavity. The fascia of this opening was closed using 0 PDS in a running fashion. I did open the specimen on the back table to ensure that we had adequate margins. The previous polyp was marked by hemostatic clips placed during colonoscopy. It appeared as though we had good margins in all directions. At this point we changed our gloves. I reinsufflated the abdomen and reinserted the camera. There was adequate hemostasis. We thoroughly irrigated the entire right side of the abdomen. The anastomosis appeared patent and viable. There was no twisting of the mesentery evident. At this point we removed all the trochars and desufflated the abdomen. The fascia of the camera port was closed using 0 Vicryl in a [id number] fashion. All the wounds were irrigated. The larger incision was closed with 3-0 Vicryl for deep layers and 4-0 Monocryl for skin. The remainder the incisions were closed using 4-0 Monocryl. Marcaine was injected around them for postoperative analgesia and skin glue used as dressing. My PAs were present for the entire procedure. Helped prep the patient. Helped run the camera as well as manipulate abdominal contents. They assisted with the anastomosis as well as wound closure and dressing placement. I attest to the content of the Intraoperative Record and any orders documented therein. Any exceptions are noted below.
[2018-12-11] MEDS: fentaNYL citrate 100 MCG/2 ML VIAL IV PRN ×4 (10:02→10:17)
[2018-12-11] MEDS: HYDROmorphone INJ 1 MG/ML SYRINGE IV PRN ×2 (10:22→10:27)
--- NOTE | 2018-12-11 10:31 | Anesthesiology Progress Note ---
Date of Service December 11, 2018 Anesthesia Post Procedure Vital Signs Vital Signs: Temp Pulse Pulse Resp BP BP Pulse Ox 12/11/18 10:25 57 L 13 106/65 99 12/11/18 10:15 56 L 15 108/66 99 12/11/18 10:05 56 L 14 107/60 100 12/11/18 09:55 36.4 C L 88 16 119/73 97 12/11/18 06:29 36.8 C 78 20 121/82 97 Pain Intensity Bilateral Abdomen: Pain Intensity: 3 Transfer of Care Handoff Completed per policy Notes Mental Status: alert / awake / arousable Patient Amnestic to Procedure: Yes Nausea / Vomiting: adequately controlled Pain: adequately controlled Airway Patency, RR, SpO2: stable & adequate BP & HR: stable & adequate Hydration State: stable & adequate Anesthetic Complications: no major complications apparent and Pt Satisfied with anesthetic care
[2018-12-11] MEDS ORDERED: MoRPHine SULFATE 2 MG/ML CARP IV PRN (11:01)
[2018-12-11] MEDS ORDERED: ACETAMINOPHEN 1,000 MG/100 ML VIAL IV PRN (11:01)
[2018-12-11] MEDS ORDERED: MoRPHine SULFATE 4 MG/ML 1 ML CARP\\VIAL IV PRN (11:01)
[2018-12-11] MEDS: LACTATED RINGER'S 1,000 ML IV SCH ×3 (11:20→23:46)
[2018-12-11] MEDS: ACETAMINOPHEN 1,000 MG/100 ML VIAL IV SCH ×2 (12:34→20:13)
[2018-12-11] MEDS: KETOROLAC 30 MG/ML VIAL IV PRN ×2 (15:47→23:46)
[2018-12-11] MEDS: CEFAZOLIN 2000MG 2,000 MG/15 ML SYR IV SCH ×2 (15:47→23:46)
[2018-12-12] MEDS: ACETAMINOPHEN 1,000 MG/100 ML VIAL IV SCH ×2 (03:21→11:39)
[2018-12-12 07:27] LABS: Basophils # (auto) 0.01 K/uL (0-0.2); Basophils % (auto) 0.1 %; Eosinophils # (auto) 0.02 K/uL (0-0.5); Eosinophils % (auto) 0.3 %; Hematocrit (blood only) 34.4 % (37-47); Hemoglobin 11.9 g/dL (12.0-16.0); Immature Granulocytes # (auto) 0.01 K/uL (0.00-0.02); Immature Granulocytes % (auto) 0.1 %; Lymphocytes # (auto) 2.24 K/uL (1.2-3.4); Lymphocytes % (auto) 30.4 %; Mean Corpuscular Hgb Conc 34.6 g/dL (32-36); Mean Corpuscular Volume 85.1 fL (80-100); Mean Platelet Volume 8.8 fL (7.4-10.4); Monocytes # (auto) 0.92 K/uL (0.11-0.59); Monocytes % (auto) 12.5 %; Neutrophils # (auto) 4.16 K/uL (1.4-6.5); Neutrophils % (auto) 56.6 %; Platelet Count 178 K/uL (130-400); RDW Standard Deviation 40.6 fL (36.4-46.3); Red Blood Count 4.04 M/uL (4.2-5.4); White Blood Count 7.36 K/uL (4.8-10.8)
[2018-12-12 07:34] LABS: Prothrombin Time 9.9 Seconds (9.0-12.0)
[2018-12-12] MEDS: CEFAZOLIN 2000MG 2,000 MG/15 ML SYR IV SCH (08:01)
[2018-12-12 08:02] LABS: BUN Creatinine Ratio 8.2 (10-20); Calcium 8.3 mg/dl (8.5-10.1); Creatinine Clr Calc Pharmacy 97.5 ml/min; Est GFR (African American) 109.5; Est GFR (Non-African American) 94.5; Potassium 3.3 mmol/L (3.5-5.1)
[2018-12-12] MEDS: LACTATED RINGER'S 1,000 ML IV SCH (08:23)
[2018-12-12] MEDS: ENOXAPARIN INJ 40 MG/0.4 ML SYR SQ SCH (08:26)
[2018-12-12] MEDS ORDERED: POTASSIUM CHLORIDE 20 MEQ TABCR PO STA (08:32)
[2018-12-12] MEDS ORDERED: NSS + 20MEQ KCL 20 MEQ/1,000 ML BAG IV SCH (08:45)
--- NOTE | 2018-12-12 11:01 | Anesthesiology Progress Note ---
Date of Service December 12, 2018 Anesthesia Post Procedure Vital Signs Vital Signs: Temp Pulse Pulse Resp BP BP Pulse Ox 12/12/18 07:33 36.9 C 58 L 11 L 116/70 96 12/12/18 03:10 36.9 C 89 16 107/57 L 95 12/11/18 23:15 36.9 C 83 16 102/65 12/11/18 19:07 36.8 C 91 H 17 120/80 98 12/11/18 15:18 36.6 C 95 H 18 118/76 96 12/11/18 14:20 36.8 C 79 18 106/69 95 12/11/18 13:00 36.6 C 73 18 109/70 99 12/11/18 11:58 36.6 C 93 H 18 115/76 97 12/11/18 11:30 36.3 C L 93 H 18 108/71 97 Pain Intensity Bilateral Abdomen: Pain Intensity: 5 Abdomen: Pain Intensity: 4 Notes Mental Status: alert / awake / arousable and participated in evaluation Patient Amnestic to Procedure: Yes Pain: adequately controlled Airway Patency, RR, SpO2: stable & adequate BP & HR: stable & adequate Anesthetic Complications: no major complications apparent
[2018-12-12] MEDS: KETOROLAC 30 MG/ML VIAL IV PRN ×2 (11:37→20:34)
--- NOTE | 2018-12-12 12:03 | Surgery Progress Note ---
Date of Service December 12, 2018 Assessment & Plan (1) Colon polyp: POD 1 lap right colectomy H&H down slightly, dilutional K+ 3.3, supplemented IV & PO can have full liquids IVF decreased Lovenox started this AM as above. feeling well pain controlled iveth liquids +flatus doing great so far POD 1 Subjective pain managed with Toradol/Ofirmev, passing flatus, some liquid BM Physical Exam Gastrointestinal (Abdomen): Inspection/Auscultation: + abdominal surgical incision (dry); abdomen not distended Percussion/Palpation: abdomen soft Results & Data Vital Signs (Past 12 Hours) Vital Signs Temp Pulse Pulse Resp BP Pulse Ox 12/12/18 11:35 36.8 C 74 12 102/68 96 12/12/18 07:33 36.9 C 58 L 11 L 116/70 96 12/12/18 03:10 36.9 C 89 16 107/57 L 95 PG Care Time/CCT Total # of Minutes Spent Total Time Spent with Patient: Total time spent is greater than 50% in coordination of care (as documented) at patient's floor/unit and/or counseling patient:
--- NOTE | 2018-12-12 12:31 | Anesthesiology Progress Note ---
Date of Service December 12, 2018 Anesthesia Post Procedure Vital Signs Vital Signs: Temp Pulse Pulse Resp BP BP Pulse Ox 12/12/18 11:35 36.8 C 74 12 102/68 96 12/12/18 07:33 36.9 C 58 L 11 L 116/70 96 12/12/18 03:10 36.9 C 89 16 107/57 L 95 12/11/18 23:15 36.9 C 83 16 102/65 12/11/18 19:07 36.8 C 91 H 17 120/80 98 12/11/18 15:18 36.6 C 95 H 18 118/76 96 12/11/18 14:20 36.8 C 79 18 106/69 95 12/11/18 13:00 36.6 C 73 18 109/70 99 Pain Intensity Bilateral Abdomen: Pain Intensity: 5 Abdomen: Pain Intensity: 5 Transfer of Care Handoff Completed per policy Notes Mental Status: alert / awake / arousable Patient Amnestic to Procedure: Yes Nausea / Vomiting: adequately controlled Pain: adequately controlled Airway Patency, RR, SpO2: stable & adequate BP & HR: stable & adequate Hydration State: stable & adequate Anesthetic Complications: no major complications apparent and Pt Satisfied with anesthetic care
[2018-12-12] MEDS ORDERED: HYDROCODONE/ACETAMOPHEN 5/325MG TAB PO PRN ×2 (12:45)
[2018-12-13 06:59] LABS: Basophils # (auto) 0.02 K/uL (0-0.2); Basophils % (auto) 0.3 %; Eosinophils # (auto) 0.15 K/uL (0-0.5); Eosinophils % (auto) 2.2 %; Hematocrit (blood only) 36.6 % (37-47); Hemoglobin 13.2 g/dL (12.0-16.0); Immature Granulocytes # (auto) 0.01 K/uL (0.00-0.02); Immature Granulocytes % (auto) 0.1 %; Lymphocytes # (auto) 2.17 K/uL (1.2-3.4); Lymphocytes % (auto) 31.5 %; Mean Corpuscular Hgb Conc 36.1 g/dL (32-36); Mean Corpuscular Volume 85.7 fL (80-100); Mean Platelet Volume 9.2 fL (7.4-10.4); Monocytes # (auto) 0.77 K/uL (0.11-0.59); Monocytes % (auto) 11.2 %; Neutrophils # (auto) 3.77 K/uL (1.4-6.5); Neutrophils % (auto) 54.7 %; Platelet Count 198 K/uL (130-400); RDW Coefficient of Variation 13.2 % (11.5-14.5); RDW Standard Deviation 41.1 fL (36.4-46.3); Red Blood Count 4.27 M/uL (4.2-5.4); White Blood Count 6.89 K/uL (4.8-10.8)
[2018-12-13 07:24] LABS: BUN Creatinine Ratio 7.5 (10-20); Calcium 8.3 mg/dl (8.5-10.1); Creatinine Clr Calc Pharmacy 106.1 ml/min; Est GFR (African American) 118.2; Potassium 3.6 mmol/L (3.5-5.1)
--- NOTE | 2018-12-13 09:22 | Surgery Progress Note ---
Date of Service December 13, 2018 Assessment & Plan (1) Colon cancer: pod 2 doing great. would like to go home ok for d/c. instructions given Subjective doing well. +bm's x 2. iveth diet. no n/v. pain control adequate. Physical Exam Physical Exam: alert. nad abd: soft. expected tenderness. incisions look good. Results & Data Vital Signs (Past 12 Hours) Vital Signs Temp Pulse Pulse Resp BP BP Pulse Ox 12/13/18 07:44 36.6 C 76 18 98/62 L 96 12/12/18 23:25 36.9 C 76 16 110/65 95 PG Care Time/CCT Total # of Minutes Spent Total Time Spent with Patient: Total time spent is greater than 50% in coordination of care (as documented) at patient's floor/unit and/or counseling patient:
[2018-12-13] MEDS: ENOXAPARIN INJ 40 MG/0.4 ML SYR SQ SCH (09:25)
--- NOTE | 2018-12-16 13:33 | Discharge Summary ---
Date of Service December 16, 2018 Principal Diagnosis Adenocarcinoma of colon Discharge Exam Gastrointestinal (Abdomen) Inspection/Auscultation: + abdominal surgical incision (clean, dry); abdomen not distended Percussion/Palpation: abdomen soft Discharge Data Allergies Allergy/AdvReac Type Severity Reaction Status Date / Time No Known Drug Allergies Allergy Verified 12/11/18 15:00 Procedures Performed Operation Date: 12/11/18 07:50 Actual Procedures p Laparoscopic Assisted Right Hemicolectomy - Seven Tierney DO Hospital Course (1) Colon cancer: 48 y/o female with adenocarcinoma arising from cecal TVA now taken to the operating room for laparoscopic right colectomy. She was transferred to the surgical floor postoperatively. Lovenox was used for DVT prophylaxis. She was passing flatus on POD 1 and advanced to full liquid diet. By day two she was having multiple bowel movements, was able to tolerate regular diet and oral analgesics. She was stable for discharge home later in the day. Total Time Total Time Spent Total Time Spent (In Minutes): 15 Discharge Plan Discharge Items Patient Disposition: Home - Self-Care Reason For Visit: Adenocarcinoma Colon Discharge Diagnosis: colon cancer Discharge Goals: Decrease discomfort and Therapeutic intervention Activity: Per 'Additional Instructions' section Lifting: No more than 10 pounds Bathing Comment: You may shower starting today Exercise/Sports: Wait until after follow-up appointment Driving/Machine Use: Resume 3 days after discharge Non-emergency contact: Surgeon Call non-emergency contact if: you have any medication questions, your symptoms worsen, your pain is not controlled, you have a fever, your temperature is above 101.5, your wound has increased redness, your wound has increased drainage and your wound pain has increased Follow-up/Referrals: Yefri Grewal III, MD [Primary Care Provider] - Seven Tierney DO [Surgeon] - (Please schedule follow up for within 2 weeks. You may call the office sooner if you have any questions/concerns.) Diet: Low Fiber Diet Comment: soft/bland as discussed Addtl Provider Instructions: call [phone] with any question/concerns Prescriptions: New hydrocodone-acetaminophen [[place]] 5-325 mg tablet 1 - 2 tab PO Q4H Qty: 15 RF: 0 Continued NuvaRing 0.12-0.015 mg/24 hr Ring 1 vag ring VAGINAL UD RF: 0 multivitamin Tablet,Chewable 2 tab PO QAM RF: 0 biotin 1,000 mcg Tablet,Chewable 2,000 mcg PO QAM RF: 0 Stand-Alone Forms: My [facility]/Other Patient Handouts: Resections Types Colon, Surgery Laparoscopic Colon Discharge Orders: Discharge Order (Routine); Ordered 12/13/18 Ordered By: Seven Tierney Admission Data Admit Date/Time: 12/11/18 09:54 Attending Provider: Seven Tierney Admit Provider: Seven Tierney Primary Care Provider: Yefri Grewal III Service: Surgical Services Other Interventions: Discharge Summary Assessment (RN) Last Done: 12/13/18 09:40 DC Date/Time DO NOT enter until pt leaves facility: 12/13/18 10:27
== END 2018-12-13 10:27 | disposition home or self-care (01) | DRG 331 ==
LOC: ASU 05:59 → 3N 09:54

== ENCOUNTER 2022-06-01 04:57 | Observation (INO) ==
--- NOTE | 2022-04-30 14:45 | PAT Medication Instructions ---
Medication Instructions Date of Service April 30, 2022 Home Medications biotin 1,000 mcg chewable tablet 2,000 mcg PO QAM multivitamin 2 tab PO QAM calcium carbonate 600 mg calcium (1,500 mg) tablet (Calcium) 600 mg PO QAM STOP taking 2 weeks before surgery biotin 1,000 mcg chewable tablet 2,000 mcg PO QAM DO NOT take the morning of surgery multivitamin 2 tab PO QAM calcium carbonate 600 mg calcium (1,500 mg) tablet (Calcium) 600 mg PO QAM OTHERWISE NOTHING TO EAT OR DRINK AFTER MIDNIGHT Other Notes If you have any questions please call us at [phone] or [phone] or [phone] or [phone]
--- NOTE | 2022-05-07 08:26 | Anesthesiology Consultation ---
Date of Service May 07, 2022 Assessment & Plan (1) Encounter for pre-operative examination: - check urine test STAT am DOS. - right arm restriction: Pt s/p R breast lumpectomy and excision of multiple sentinel lymph nodes, states she is unsure of a limb restriction, not specified in records. I personally notified PAT hydroelectric systems technician to only use left arm. I advised pt f/u with hematology/oncology and general surgery team regarding clarification on limb restriction. - Outpatient joint assessment: Patient is currently scheduled for inpatient pathway. If re-evaluated pending system levels during current pandemic/surgeon requests outpatient pathway, patient is acceptable candidate for outpatient joint program from anesthesia standpoint pending surgeon's office assessment of pt motivation/support/completion of same day joint program preop requirements. Chart Review Chart Review: Acceptable Risk for Surgery and Patient seen in Pre Admission Testing Teaching & Discussion Pre-Anesthesia Teaching/Discussion Notes: Instructed NPO after midnight before surgery, except medications with 15 cc of water. Medication instructions provided according to the PAT guidelines. History Surgery Operation Date: 06/01/22 10:40 Proposed Procedures p Left Total Hip Arthroplasty - Jorge Hines MD Height/Weight Height: 5 ft 5 in Weight: 85.275 kg Allergies Allergy/AdvReac Type Severity Reaction Status Date / Time No Known Drug Allergies Allergy Verified 04/30/22 10:38 Medications Home Medications Medication Instructions Recorded Confirmed Last Taken biotin 1,000 mcg chewable tablet 2,000 mcg PO QAM 11/05/18 04/30/22 09/09/21 10:00 multivitamin 2 tab PO QAM 11/05/18 04/30/22 09/09/21 10:00 calcium carbonate 600 mg calcium 600 mg PO QAM 12/29/20 04/30/22 01/17/21 08:00 (1,500 mg) tablet (Calcium) Past Medical History Medical History (Updated 05/07/22 @ 08:36 by Aidee Farfan PA-C) Colon cancer 2019 s/p hemicolectomy Degenerative disc disease lumbar Erysipelas hx, pt reports episodes q 6-8 months GERD (gastroesophageal reflux disease) rare, stable per pt History of anesthesia problem "came out of surgery shaking terribly and was extremely cold" Invasive ductal carcinoma of breast (11/2020) right breast, 2 separate lesions; recently finished chemo and XRT, lumpectomy and multiple lymph nodes removed-right arm limb restriction Limb alert care status right arm Obesity Port-A-Cath in place s/p removal Patient denies h/o stroke, seizures, heart attack, heart failure, DM, HTN, blood clots or blood transfusions. Exercise / Class Metabolic Activity II 4-5 Yardwork/Stairs/Walk up hill (denies CP or SOB with 1 FOS) Past Family History Family History Mother Family history of diabetes mellitus Other No family history of adverse response to anesthesia Past Surgical History Surgical History (Updated 05/07/22 @ 08:30 by Aidee Farfan PA-C) H/O hemicolectomy (12/11/18) Laparoscopic Right Hemicolectomy Dr. Tierney 12-11-1819 Grade 2 view, MAC 3, ETT 7.5. History of breast biopsy right breast History of colonoscopy History of total right hip replacement History of wisdom tooth extraction Status post right breast lumpectomy (09/11/21) Right breast lumpectomy with sentinel lymph node biopsy. Dr. Joe 09/11/2021 LMA#4. right arm restriction. Past Anesthesia History No Family Hx of Anesthesia Complications and Other (woke cold and shivering with previous surgeries) History of PONV No Hx of PONV and No Hx of Motion Sickness Social History Smoking Status: Former smoker Do You Dip or Chew Tobacco: No Smoking End Date: years ago, only smoked socially Hx Alcohol Use: Yes Alcohol type: wine alcohol intake frequency: holidays/special occasions only Hx Substance Use: No substance use type: does not use Review of Systems Patient denies chest pain, shortness of breath, dyspnea on exertion, snoring, witnessed apneas, fever, chills, cough, wheezing, or palpitations. Physical Exam Vital Signs Vitals BP 102/70 P 74 TEMP 98.3 SP02 94% on RA RESP 17 Physical Full cervical extension range of motion without pain TMD < 3 finger breadths Mallampati Score 2 Dentition: intact, multiple caps; denies chipped or loose teeth, implants or bridges Lungs: normal respiratory effort. Clear throughout to auscultation, no adventitious breath sounds Cardiac: regular rate and rhythm, no murmurs noted Carotid arteries: negative bruit bilat Lab Results Anesthesia Preop Results Results Anesthesia Widget: WBC 3.65 K/ul (4.8-10.8) L 05/07/22 Hgb 14.3 g/dl (12.0-16.0) 05/07/22 Hct 40.8 % (34.1-44.9) 05/07/22 Plt 192 K/uL (130-400) 05/07/22 Na 138 mmol/L (136-145) 05/07/22 K 3.6 mmol/L (3.5-5.1) 05/07/22 Cl 103 mmol/L (98-107) 05/07/22 CO2 28 mmol/L (21-32) 05/07/22 BUN 15 mg/dl (6-23) 05/07/22 Creat 0.70 mg/dl (0.6-1.2) 05/07/22 Glucose Level 94 mg/dl (70-99(Fasting)) 05/07/22 PT 10.3 Seconds (9.0-12.0) 05/07/22 PTT 25.5 Seconds (21.0-31.0) 05/07/22 INR 1.0 (0.9-1.1) 05/07/22 Blood Type O Positive 05/07/22 Antibody Screen NEGATIVE 05/07/22 Testing Electrocardiogram Date: 05/07/22 NSR, rate 71 bpm Left anterior fascicular block Chest X-Ray Date: 05/07/22 Lung volumes are normal. Lungs are clear. There is no pneumothorax or pleural effusion. Cardiac size is normal. Mediastinal contours are normal. There is no evidence for pulmonary edema. IMPRESSION: No acute cardiopulmonary findings. Echocardiogram Date: 01/13/21 EF 55-60% No LV regional wall motion abnormalities No LVH No significant diastolic dysfunction No significant valvular abnormalities COVID-19 Risk Screen Screening Information COVID-19 Screen Date: 05/07/22 Exposure 21 Days Family/Household +COVID Last 21 Days: No Exposure 10 Days Any COVID Exposure Last 10 Days: No Symptoms Last 10 Days Experienced COVID Sx Last 10 Days: No + COVID 0-90 Days COVID + in Last 0-90 Days: No
--- NOTE | 2022-05-26 18:26 | History and Physical Report ---
CHIEF COMPLAINT: Persistent progressive left hip pain. HISTORY OF PRESENT ILLNESS: The patient is a 52-year-old female from [place] who is well known to me from previous right hip replacement done over 5 years ago. Over the past 3 years, she has develo ped increased pain and discomfort in her left hip. She describes groin pain, thigh pain and radiatin g down to her knee. She did undergo some chemotherapy for some breast cancer about a year ago and it make things worse. She limps on the left leg. The more she is up on it, the more it hurts. She ho s gotten through the breast cancer and would now like to have her left hip replaced. Also, has a his tory of colon cancer, status post colectomy without recurrence. PAST MEDICAL HISTORY: Past medical history significant for; 1. Breast cancer, status post lumpectomy and radiation treatment and chemotherapy. 2. Colon cancer, in remission. PAST SURGICAL HISTORY: 1. Right hip replacement done on 08/03/2016. 2. Lumpectomy. 3. Colon resection. ALLERGIES: None. CURRENT MEDICATIONS: Include: 1. Biotin. 2. Calcium. 3. Multivitamin. 4. Potassium chloride. SOCIAL HISTORY: A 52-year-old female who lives in [place]. She works at [employer] as an [employer]. Lives alone, single. Rare alcohol intake. FAMILY HISTORY: Significant for diabetes. REVIEW OF SYSTEMS: Significant for cancer, but currently in remission. No chest pain or shortness o f breath. No history of DVT or PE. No known bleeding problems. PHYSICAL EXAMINATION: GENERAL: Shows a pleasant middle-aged female. Looks to be in pretty good health. HEENT: Benign. NECK: Supple. No lymphadenopathy. LUNGS: Clear to auscultation. HEART: Regular rate and rhythm. ABDOMEN: Soft, nontender, nondistended. EXTREMITIES: Grossly neurovascularly intact except as follows: Examination of the left hip revealed the patient walks with an antalgic gait. Leg lengths appear pretty equal. She does have pain with hip motion. Limited internal rotation to neutral. No knee effusion. Negative straight leg raise. X-RAYS: X-rays of the left hip were reviewed. It shows advanced left hip arthritis. She has comple te loss of her superior joint space. Bone density looks good. Not a lot of osteophyte formation. T he right hip replacement looks to be in good position without signs of wear or loosening. ASSESSMENT: A 52-year-old female with a significant history of breast and colon cancer, currently in remission and 5 years out from right hip replacement with advanced left hip arthritis. Her hip arth ritis has progressed and become more debilitating. Right hip is doing great and she would like to ho ve her left hip replaced. PLAN: We will proceed with left hip replacement. The risks and benefits of this procedure were expl ained to the patient and include but not limited to DVT, PE, , infection, neurological injury, v ascular injury, bleeding problem, pain, limited range of motion, stiffness, failure to relieve sympto ms, incomplete relief of symptoms, need for further surgery in the future, etc. The patient understa nds and desires to proceed. Informed consent was obtained. She is going to plan on going to her parents to stay postoperatively. Will use aspirin for DVT proph ylaxis. Job ID: [id number]
[2022-06-01] MEDS ORDERED: LR 500ML BOLUS, THEN 15ML/HR IV SCH (06:00)
[2022-06-01] MEDS ORDERED: TRANEXAMIC ACID 1,000 MG **IV Pre-op IV SCH (06:00)
[2022-06-01] MEDS ORDERED: Scopolamine 1 MG TDSY TD SCH (06:00)
[2022-06-01] MEDS ORDERED: ACETAMINOPHEN 500 MG TAB PO SCH (06:00)
[2022-06-01] MEDS ORDERED: FAMOTIDINE 20 MG TAB PO SCH (06:00)
[2022-06-01] MEDS ORDERED: ceFAZolin 2000MG 2,000 MG/15 ML SYR IV SCH (06:00)
[2022-06-01] MEDS ORDERED: METOCLOPRAMIDE HCL 10 MG TABLET PO SCH (06:00)
[2022-06-01] MEDS ORDERED: LR 60ML/HR IV SCH (06:00)
[2022-06-01] MEDS ORDERED: CeleBREX 200 MG CAP PO SCH (06:00)
[2022-06-01] MEDS ORDERED: BUPIVACAINE 0.5 % 5 MG/1 ML PF 10ML VIAL ONE (06:34)
[2022-06-01 06:35] LABS: Pregnancy Test, Serum Negative (Negative)
[2022-06-01] MEDS ORDERED: MIDAZOLAM HCL 1 MG/ML 2ML VIAL ONE (06:39)
[2022-06-01] MEDS ORDERED: MoRPHine SULFATE PF 1 MG/ML 10 ML AMP/VIAL ONE (06:39)
[2022-06-01] MEDS ORDERED: fentaNYL citrate 100 MCG/2 ML VIAL ONE (06:39)
[2022-06-01] MEDS ORDERED: ONDANSETRON INJ 2 MG/ML 2 ML VIAL IV PRN ×2 (06:41→07:10)
[2022-06-01] MEDS ORDERED: BUPIVACAINE/EPINEPHRINE 0.5% MPF 1:200,000 30 ML VIAL ONE (06:41)
[2022-06-01] MEDS ORDERED: ePHEDrine sulfate 50 MG/ML AMP IV PRN ×2 (06:41→07:10)
[2022-06-01] MEDS ORDERED: ATROPINE SULFATE 0.1 MG/ML 10ML SYR IV PRN (06:41)
--- NOTE | 2022-06-01 06:52 | History & Physical Bridge Note ---
Date of Service June 01, 2022 History & Physical Bridge Note I have examined the patient, reviewed the History & Physical and in the interval since the performance of the History & Physical I have noted the following changes of clinical significance: no changes noted
[2022-06-01] MEDS ORDERED: MoRPHine SULFATE 2 MG/ML CARP IV PRN (07:10)
[2022-06-01] MEDS ORDERED: NALOXONE HCL 1 MG in SODIUM CHLORIDE 0.9% 1000ML 1,000 ML IV PRN (07:10)
[2022-06-01] MEDS ORDERED: PROMETHAZINE HCL 6.25 MG in SODIUM CHLORIDE 0.9% 50 ML IV PRN (07:10)
[2022-06-01] MEDS ORDERED: LACTATED RINGER'S 500 ML IV PRN (07:10)
[2022-06-01] MEDS ORDERED: diphenhydrAMINE 50 MG/ML VIAL IV PRN (07:10)
[2022-06-01] MEDS ORDERED: NALOXONE HCL 0.4 MG/1 ML VIAL/CARP IV PRN ×2 (07:10→10:39)
[2022-06-01] MEDS ORDERED: MoRPHine SULFATE PF 1 MG/ML 10 ML AMP/VIAL INT SPINAL ONE (07:10)
[2022-06-01] MEDS ORDERED: NALOXONE HCL 0.08 MG in SYRINGE 1.8 ML IV PRN (07:10)
[2022-06-01] MEDS ORDERED: NALBUPHINE HCL INJ 10 MG/ML AMP IV PRN (07:10)
[2022-06-01] MEDS ORDERED: PROPOFOL IV EMULSION 10 MG/ML 20 ML VIAL IV ONE ×2 (07:13→07:50)
[2022-06-01] MEDS ORDERED: NO NARCOTICS OR SEDATIVES SCH (07:15)
[2022-06-01] MEDS ORDERED: DC INTRASPINAL MORPHINE SCH (07:15)
[2022-06-01] MEDS ORDERED: SODIUM CHLORIDE 0.9% 1000ML 1,000 ML IV SCH (07:15)
[2022-06-01] MEDS ORDERED: DEXAMETHASONE SOD INJ 4 MG/ML VIAL ONE (07:16)
[2022-06-01] MEDS ORDERED: ONDANSETRON INJ 2 MG/ML 2 ML VIAL ONE (07:16)
[2022-06-01] MEDS ORDERED: PHENYLEPHRINE 100MCG/ML 5ML SYR ONE (07:19)
[2022-06-01] MEDS ORDERED: ePHEDrine sulfate 50 MG/ML SYR ONE (07:19)
--- NOTE | 2022-06-01 08:42 | Operative Report ---
PG Post Operative Report Pre & Post Diagnosis Operation Date: 06/01/22 07:00 Pre-Op Diagnosis: Left Hip Degenerative joint disease Post-Op Diagnosis: Left Hip Degenerative joint disease I identified the patient and participated in the time-out.: Yes Procedure Operation Date: 06/01/22 07:00 Actual Procedures p Left Total Hip Arthroplasty(Left) - Jorge Hines MD Surgeon Jorge Hines MD Manager Telemetry Ilene Silverio PA-C Estimated Blood Loss 200 Findings Consistent with Post-Op Diagnosis Operative findings were advanced left hip DJD. She had grade 4 [id number] disease of the femoral head and acetabulum. Some small anterior acetabular osteophytes. Fluids 1500 cc Specimens left femoral head sent for pathology Drains None Anesthesia Type Spinal MAC Complications none Disposition Accompanied Patient To Recovery: No Indications Patient is 52-year-old female is had a history of hip problems. She had a right hip replaced several years ago and is done well from this. Over the past several years he developed increased pain discomfort left hip. He become more debilitating over time. At she failed conservative measures. X-rays show advanced left hip arthritis. She elected proceed with total hip arthroplasty. Description of Procedure Operative implants consist of: 1 Biomet G7 size 50 mm acetabular shell. 2. 6.5 cancellous acetabular screws 135 mm length 120 mm length. 3. [place] hole bench carpenter. 4. Highly cross-linked polyethylene liner with a 50 mm outer diam and 32 mm diameter. 5. DePuy Corail size 9 KLA femoral stem. 6. +5/32 mm ceramic articular ball. The patient was taken the operating, identified, placed on the operating table supine position protectors were properly padded. IV antibiotics tried by anesthesia team. A spinal anesthetic and been implemented holding area. Raymond catheter was placed in sterile fashion. The patient was then placed in the right lateral decubitus position. Axillary roll was placed. Stulberg hip positioner used for positioning. Left hip and leg were then prepped and draped in usual sterile fashion. A posterior lateral approach to the left hip was then performed through a curvilinear incision centered over the greater trochanter. Sharp dissection Through subcutaneous is down to the IT band gluteal fascia. The IT band gluteal fascia incised longitudinally in line with skin incision. Fairly thick soft tissue envelope. The piriformis and external rotators as well as the posterior hip joint capsule was then released from the posterior aspect of the hip taking great care to protect the sciatic nerve at all times. The hip was internally rotated and dislocated. A femoral neck osteotomy cut was made with Final Cut 15 mm above the lesser trochanter. Femoral head was removed and sent for pathology. The femur was retracted anteriorly. Attention drawn the acetabulum. The acetabulum was excised. The pulmonary fat was excised. Sequential reaming the acetabular was then performed begin with a size 43 and progressing up to 49. I reamed a little bit with a 50 reamer and then placed a 50 mm cup. This placed about 15 to 20 degrees of anteversion and 40 degrees lateral opening. Some small anterior osteophytes removed. A trial liner was placed. Attention drawn the femur. The proximal femur done with a cookie cutter followed by canal finder. I then broached begin the size 8 and then progressed to a 9. We got excellent fit and 9. In the Decofed a 10. We then reduced the hip and the hip was fully stable with a +5 articular ball. We use a smaller head/32 mm head in order to have a little bit thicker polyethylene. Hip was fully stable. Leg lengths are. Equal. Soft tissue tension was appropriate. We like to place these implants. Nupathe all trial implants were removed. [place] hole bench carpenter highly cross- linked polyethylene liner was placed. A size 9 KLA femoral stem was impacted in position. +5/32 mm ceramic articular ball was placed. Hip was located. The wound was irrigated extensively. I did inject locally with 60 cc of half percent Marcaine with epinephrine. The posterior capsule and external rotators were then repaired through drill holes in the posterior trochanter with #2 Tycron suture. The IT band gluteal fascia then closed in 1 PDS suture in a running fashion for subcutaneous tissues then closed with 2 layers the deep layer #2 Vicryl suture in a buried interrupted fashion. The superficial layer was closed with 2-0 Dexon suture in buried interrupted fashion the skin was closed skin gerald. Leg was then cleaned and dried a sterile Prevena VAC dressing was applied to the thick soft tissue envelope. Patient then transferred to the recovery in stable condition. Patient tolerated procedure well and there were no complications. Antoine Silverio, my physician exceptional children teacher assistant, was present for the entire procedure. His assistance was essential and required for appropriate patient positioning, prepping and draping, surgical exposure, performing the technical details of the operation, placement the implants, closure of the wound, and placement of the sterile bandage. I attest to the content of the Intraoperative Record and any orders documented therein. Any exceptions are noted below.
--- NOTE | 2022-06-01 09:02 | XRay Report ---
AP PELVIS, CROSSTABLE LATERAL LEFT HIP History: Left total hip arthroplasty. Degenerative arthritis. Postop. FINDINGS: The patient is status post a left total hip arthroplasty. The hardware is intact. No fractu re or dislocation. Skin gerald are in place. Evidence for prior right total hip arthroplasty. IMPRESSION: Left total hip arthroplasty. No evidence for hardware complication. ACT 112: Negative or not required by law. Electronically signed by: Sebastián Echevarria M.D. 06/01/2022 8:59 AM
[2022-06-01] MEDS ORDERED: SODIUM CHLORIDE 0.9% 50 ML BAG ONE ×2 (09:08→09:36)
[2022-06-01] MEDS ORDERED: PROMETHAZINE HCL INJ 25 MG/ML 1 ML VIAL ONE ×2 (09:09→09:36)
[2022-06-01] MEDS ORDERED: PROMETHAZINE HCL 6.25 MG in SODIUM CHLORIDE 0.9% 50 ML IV STA (09:39)
[2022-06-01] MEDS ORDERED: NON-FORMULARY MEDICATION (Multivitamin Tablet,Chewable) PO SCH (10:39)
[2022-06-01] MEDS ORDERED: ALUMINUM/MAGNESIUM SUSP 30 ML UDC PO PRN (10:39)
[2022-06-01] MEDS ORDERED: bisacodyL 10 MG SUPP PR PRN (10:39)
[2022-06-01] MEDS ORDERED: MAGNESIUM HYDROXIDE SUSP 30 ML UDC PO PRN (10:39)
[2022-06-01] MEDS ORDERED: DOCUSATE SODIUM/SENNA 50/8.6MG TAB PO SCH (10:39)
[2022-06-01] MEDS ORDERED: NON-FORMULARY MEDICATION (Biotin 1,000 mcg Tablet,Chewable) PO SCH (10:39)
[2022-06-01] MEDS: SODIUM CHLORIDE 0.9% 1000ML 1,000 ML IV SCH ×2 (11:39→21:29)
[2022-06-01] MEDS: ASPIRIN 81 MG ECTAB PO SCH ×2 (12:24→20:24)
[2022-06-01] MEDS: MULTIVITAMIN TAB PO SCH (12:25)
[2022-06-01] MEDS: DOCUSATE SODIUM 100 MG CAP PO SCH ×2 (12:25→20:24)
[2022-06-01] MEDS: CALCIUM CARBONATE 500 MG CHEWABLE TAB PO SCH (12:25)
[2022-06-01] MEDS: KETOROLAC 30 MG/ML VIAL IV SCH ×3 (12:25→21:29)
--- NOTE | 2022-06-01 12:44 | Anesthesiology Progress Note ---
Date of Service June 01, 2022 Anesthesia Post Procedure Vital Signs Vital Signs: Temp Pulse Pulse Resp BP BP Pulse Ox 06/01/22 12:29 36.5 C 63 16 94/58 L 95 06/01/22 11:00 14 100 06/01/22 10:30 14 99 06/01/22 11:37 15 100 06/01/22 11:36 36.4 C L 70 15 99/64 L 100 06/01/22 10:59 36.4 C L 98 H 14 102/65 100 06/01/22 10:30 36.4 C L 69 14 113/73 99 06/01/22 10:10 96 H 13 124/80 95 06/01/22 10:00 36.4 C L 96 H 12 124/81 94 06/01/22 09:50 97 H 16 126/78 95 06/01/22 09:40 99 H 14 124/84 94 06/01/22 09:30 96 H 15 119/79 93 06/01/22 09:20 95 H 15 123/78 94 06/01/22 09:10 99 H 16 121/83 95 06/01/22 09:00 98 H 14 125/82 94 06/01/22 08:50 98 H 15 122/81 96 06/01/22 08:40 93 H 15 109/69 100 06/01/22 08:31 36.2 C L 98 H 18 103/73 100 06/01/22 05:32 36.7 C 72 20 115/74 99 O2 Del Method O2 Flow Rate 06/01/22 12:29 Room Air 06/01/22 11:00 06/01/22 10:30 06/01/22 11:37 06/01/22 11:36 Nasal Cannula 1 06/01/22 10:59 Nasal Cannula 1 06/01/22 10:30 Nasal Cannula 2 06/01/22 10:10 Room Air 06/01/22 10:00 Room Air 06/01/22 09:50 Room Air 06/01/22 09:40 Room Air 06/01/22 09:30 Room Air 06/01/22 09:20 Room Air 06/01/22 09:10 Room Air 06/01/22 09:00 Room Air 06/01/22 08:50 Room Air 06/01/22 08:40 Oxymask 5 06/01/22 08:31 Oxymask 5 06/01/22 05:32 Room Air Pain Intensity Left Hip: Pain Intensity: 5 Transfer of Care Handoff Completed per policy Notes Mental Status: alert / awake / arousable and participated in evaluation Patient Amnestic to Procedure: Yes Nausea / Vomiting: improving with treatment Pain: adequately controlled Airway Patency, RR, SpO2: stable & adequate BP & HR: stable & adequate Hydration State: stable & adequate Neuraxial Anesthesia: was administered and sensory block is resolving Anesthetic Complications: no major complications apparent and Pt Satisfied with anesthetic care
[2022-06-01] MEDS: ACETAMINOPHEN 500 MG TAB PO SCH ×2 (13:28→21:29)
[2022-06-01] MEDS: ceFAZolin 2000MG 2,000 MG/15 ML SYR IV SCH ×2 (13:29→21:29)
[2022-06-01] MEDS ORDERED: TRANEXAMIC ACID / 0.7% NACL 1,000 MG/100 ML BAG IV SCH (14:30)
[2022-06-01] MEDS: Scopolamine CHECK PATCH PLACEMENT SCH ×2 (14:39→23:44)
[2022-06-01] MEDS: ASCORBIC ACID 500 MG TAB PO SCH (16:27)
--- NOTE | 2022-06-01 16:57 | Progress Notes ---
DATE OF SERVICE: 06/01/2022 SUBJECTIVE: A 52-year-old female postop from a left hip replacement. She is doing well. I had to w jamshid her. Really not having any hip pain yet. No chest pain or shortness of breath. Not feeling diz zy or lightheaded. OBJECTIVE: VITAL SIGNS: Temperature 36.4. Vital signs are stable. PHYSICAL EXAMINATION: GENERAL: Shows a pleasant middle-aged female. I had to wake her this afternoon. LUNGS: Clear to auscultation. HEART: Regular rate and rhythm. ABDOMEN: Soft, nontender, nondistended. EXTREMITIES: Grossly neurovascularly intact except as follows. Examination of the left leg reveals the leg to be well aligned. Leg lengths are equal. Her Prevena dry dressing is clean, dry, and intact. Hip is located. She is neurologically intact. X-RAYS: X-ray of left hip from recovery room reviewed. She has a left uncemented total hip replacem ent. Components looked to be in good position. No signs of problems. ASSESSMENT: A 52-year-old female postop from a left hip replacement, doing well. Pain is controlled . Hip is located. She is neurologically intact. PLAN: 1. DVT prophylaxis to include thigh-high TEDs, SCDs, and aspirin twice a day. 2. PT/OT, weightbear as tolerated. Left total hip protocol. 3. Pain control, doing okay with current pain regimen. 4. Disposition: Plan to discharge to home with some home health when medically stable and pain cont rolled. She is planning on going to stay with her parents and having home health. Job ID: [id number]
[2022-06-01] MEDS ORDERED: SENNA 8.6 MG TAB PO SCH (21:00)
[2022-06-02] MEDS ORDERED: HYDROmorphone INJ 0.5 MG/0.5 ML SYR IV PRN (01:11)
[2022-06-02] MEDS ORDERED: traMADol HCL 50 MG TABLET PO PRN (01:11)
[2022-06-02] MEDS ORDERED: ONDANSETRON INJ 2 MG/ML 2 ML VIAL IV PRN (01:11)
[2022-06-02] MEDS ORDERED: diphenhydrAMINE Capsule 25 MG CAP PO PRN (01:11)
[2022-06-02] MEDS ORDERED: METOCLOPRAMIDE HCL INJ 5 MG/ML 2 ML VIAL IV PRN (01:11)
[2022-06-02] MEDS: KETOROLAC 30 MG/ML VIAL IV SCH ×2 (05:44→10:18)
[2022-06-02] MEDS: ACETAMINOPHEN 500 MG TAB PO SCH (05:44)
[2022-06-02 06:53] LABS: Basophils # (auto) 0.01 K/uL (0-0.2); Basophils % (auto) 0.2 %; Eosinophils # (auto) 0.01 K/uL (0-0.50); Eosinophils % (auto) 0.2 %; Hematocrit (blood only) 31.4 % (37.0-47.0); Hemoglobin 10.9 g/dl (12.0-16.0); Immature Granulocytes # (auto) 0.03 K/uL (0.01-0.20); Immature Granulocytes % (auto) 0.5 %; Lymphocytes # (auto) 1.18 K/uL (1.2-3.4); Lymphocytes % (auto) 19.1 %; Mean Corpuscular Hemoglobin 30.8 pg (25.0-34.0); Mean Corpuscular Hgb Conc 34.7 g/dL (32.0-36.0); Mean Corpuscular Volume 88.7 fL (80.0-100.0); Mean Platelet Volume 9.5 fL (9.4-12.4); Monocytes # (auto) 0.73 K/uL (0.11-0.59); Monocytes % (auto) 11.8 %; Neutrophils # (auto) 4.22 K/uL (1.40-6.50); Neutrophils % (auto) 68.2 %; Platelet Count 141 K/uL (130-400); RDW Coefficient of Variation 12.8 % (11.5-14.5); RDW Standard Deviation 41.8 fL (36.4-46.3); Red Blood Count 3.54 M/uL (4.20-5.40); White Blood Count 6.18 K/ul (4.8-10.8)
[2022-06-02 07:17] LABS: BUN Creatinine Ratio 19.7 (10-20); Calcium 9.2 mg/dl (8.5-10.1); Creatinine Clr Calc Pharmacy 93.2 ml/min; Est GFR (African American) 103.1 ml/min; Est GFR (Non-African American) 88.9 ml/min; Potassium 3.8 mmol/L (3.5-5.1)
[2022-06-02] MEDS ORDERED: dexAMETHasone 10 MG in SYRINGE 0 ML IV SCH (08:00)
[2022-06-02] MEDS: MULTIVITAMIN TAB PO SCH (08:39)
[2022-06-02] MEDS: ASPIRIN 81 MG ECTAB PO SCH (08:40)
[2022-06-02] MEDS: ASCORBIC ACID 500 MG TAB PO SCH (08:40)
[2022-06-02] MEDS: DOCUSATE SODIUM 100 MG CAP PO SCH (08:40)
[2022-06-02] MEDS: CALCIUM CARBONATE 500 MG CHEWABLE TAB PO SCH (08:40)
[2022-06-02] MEDS: Scopolamine CHECK PATCH PLACEMENT SCH (08:41)
--- NOTE | 2022-06-02 09:13 | Progress Notes ---
DATE OF NOTE: 06/02/2022 SUBJECTIVE: A 52-year-old white female postoperative day 1 from a left hip replacement. She is doin g well. He had a pretty good night. Pain is controlled. No chest pain or shortness of breath. Not feeling dizzy or lightheaded. OBJECTIVE: VITAL SIGNS: Temperature 36.7. Vital signs are stable. GENERAL: Shows a pleasant middle-aged female. She is sitting up in bed, looks pretty comfortable. EXTREMITIES: Examination of the left hip reveals the dressing to be clean, dry and intact. Thigh is soft and supple. Leg lengths are equal. She is neurologically intact. LABORATORY DATA: Hemoglobin 10.9. Hematocrit 31.4. Electrolytes are stable. ASSESSMENT: A 52-year-old female postoperative day 1 from a left hip replacement, doing well. Pain is controlled. Hip is located. She is neurologically intact. PLAN: 1. DVT prophylaxis includes thigh-high TEDs, SCDs, and aspirin twice a day. 2. PT/OT, weightbear as tolerated. Left total hip protocol. 3. Pain control, doing well with current pain regimen. 4. Disposition: She is planning to be discharged to home. She is going to go and stay at her [facility] who will assist in her care. She will have home health. She will follow up with me 2 week s postop. Job ID: [id number]
[2022-06-02 11:09] VITALS: BP 97/63; PULSE 70; TEMP 98.2; O2SAT 94
--- NOTE | 2022-06-08 09:48 | Discharge Summary ---
Date of Service June 08, 2022 Discharge Data Procedures Performed Operation Date: 06/01/22 07:00 Actual Procedures p Left Total Hip Arthroplasty(Left) - Jorge Hines MD Hospital Course (1) Status post total hip replacement, left: This is a 52 year old patient admitted on 06/01/22 and underwent total hip arthroplasty. She tolerated the procedure well and there were no complications. Transferred to the PACU post op and later to the orthopedic floor for further care. She was given ancef for antibiotic prophylaxis. She was also given SYLVESTER stockings, SCDs, and aspirin for DVT prophylaxis. Hemoglobin, hematocrit, and vital signs were monitored during her hospital stay and remained stable. Did not require any blood transfusions. There were no complications during her hospital stay. By post op day #1 the patient was tolerating a regular diet, pain was reasonably controlled with oral pain medicine, and she was participating in physical therapy. On post op day #1 the patient was discharged home and set up with home health care. She was given printed discharge instructions including prescriptions for extra strength tylenol, aspirin, ketorolac, zofran, senokot, and tramadol. Continue physical therapy, weight bearing as tolerated. Continue hip precautions. Continue SYLVESTER stockings. Follow up approximately 2 weeks post op or sooner if there are problems or concerns. Coding Level of Care Code None Diagnoses Status post total hip replacement, left Z96.642
== END 2022-06-02 13:53 | disposition home health service (06) ==
LOC: 3E 04:57 → ASU 04:57
DX: Z80.3 Family history of malignant neoplasm of breast; Z79.899 Other long term (current) drug therapy; Z20.822 Contact with and (suspected) exposure to COVID-19; M16.12 Unilateral primary osteoarthritis, left hip; Z87.891 Personal history of nicotine dependence; Z92.21 Personal history of antineoplastic chemotherapy; Z79.82 Long term (current) use of aspirin; Z96.641 Presence of right artificial hip joint